=== PATIENT | male | born 1990 | race Caucasian/White ===

== ENCOUNTER 2018-12-04 08:22 | Emergency (ER) | payer OTHER ==
[~2018-12-04] VITALS: Ht 182.9 cm; Wt 113.0 kg
[2018-12-04] MEDS ORDERED: SODIUM CHLORIDE 0.9% 1,000 ML IV SCH (08:53)
[2018-12-04] MEDS ORDERED: FAMOTIDINE 20MG/2ML VIAL IV ONE (09:00)
[2018-12-04] MEDS ORDERED: DIPHENHYDRAMINE 25MG CAPSULE PO ONE (09:00)
[2018-12-04] MEDS ORDERED: EPINEPHRINE 1:1000 1 MG/ML AMP IM ONE (09:00)
[2018-12-04] MEDS ORDERED: DIPHENHYDRAMINE 50MG/ML VIAL ONE (09:01)
[2018-12-04 11:09] VITALS: BP 130/80
== END 2018-12-04 11:09 | disposition home or self-care (01) ==
LOC: ER 08:33
DX: T63.441A Toxic effect of venom of bees, accidental (unintentional), initial encounter (principal); Y92.89 Other specified places as the place of occurrence of the external cause; I10 Essential (primary) hypertension; F12.10 Cannabis abuse, uncomplicated
CPT/HCPCS: 96361; 96372; 96374; 99283; J1200; J3490; J7040; Q0163